=== PATIENT | female | born 1995 | race African-American/Black ===

== ENCOUNTER 2023-12-16 22:50 | Emergency (ER) | payer SELFPAY ==
[~2023-12-16] VITALS: Ht 165.1 cm; Wt 104.3 kg
[2023-12-16 23:01] VITALS: TEMP 98.3
[2023-12-16] MEDS: SODIUM CHLORIDE 0.9% 1000ML 1,000 ML IV STA (23:12)
[2023-12-16] MEDS: ONDANSETRON HCL INJ 2MG/ML 2ML 2 MG/ML VIAL IV STA (23:12)
[2023-12-16] MEDS: FAMOTIDINE 20 MG/2 ML VIAL IV STA (23:12)
[2023-12-16 23:25] LABS: BASOPHILS % 0.1 % (0.0-1.0); EOSINOPHILS # (AUTO) 0.2 (0.0-0.4); EOSINOPHILS % 2.7 % (0.0-6.0); HEMATOCRIT 38.4 % (34.2-44.1); HEMOGLOBIN 13.2 g/dL (12.0-16.0); LYMPHOCYTES % 25.4 % (18.0-39.1); MEAN CORPUSCULAR HEMOGLOBIN 30.8 pg (28-32); MEAN CORPUSCULAR HGB CONC 34.4 g/dL (31-35); MEAN CORPUSCULAR VOLUME 89.5 fL (81-99); MONOCYTES # (AUTO) 0.5 (0.2-0.8); MONOCYTES % 5.8 % (4.4-11.3); NEUTROPHILS # (AUTO) 5.1 (2.1-6.9); NEUTROPHILS % 65.9 % (38.7-80.0); PLATELET COUNT 272 x10e3/uL (140-360); RED BLOOD COUNT 4.29 x10e6/uL (3.6-5.1); RED CELL DISTRIBUTION WIDTH 12.8 % (11.7-14.4); WHITE BLOOD COUNT 7.71 x10e3/uL (4.8-10.8)
[2023-12-16 23:27] LABS: BILIRUBIN,URINE SMALL (NEGATIVE); CLARITY,URINE CLEAR (CLEAR); COLOR,URINE AMBER (YELLOW); GLUCOSE, URINE NEGATIVE (NEGATIVE); KETONES,URINE NEGATIVE (NEGATIVE); LEUKOCYTE ESTERASE ,URINE NEGATIVE (NEGATIVE); NITRITE,URINE NEGATIVE (NEGATIVE); PH,URINE 7 (5 - 7); PROTEIN,URINE DIPSTICK NEGATIVE (NEGATIVE); URINE UROBILINOGEN 2 mg/dL (0.2 - 1)
[2023-12-16 23:28] LABS: PREGNANCY TEST, URINE NEGATIVE (NEGATIVE)
[2023-12-16 23:33] LABS: AMORPHOUS SEDIMENT,URINE FEW (FEW); BACTERIA,URINE FEW /HPF; EPITHELIAL CELLS,URINE FEW /LPF; RBC,URINE 0-5 /HPF (0-5); WBC,URINE (MAN) 0-5 /HPF (0-5)
[2023-12-16 23:44] LABS: ALBUMIN 3.9 g/dL (3.5-5.0); ALBUMIN/GLOBULIN RATIO 1.1 (0.8-2.0); ANION GAP 11.7 mmol/L (8-16); BILIRUBIN,TOTAL 1.5 mg/dL (0.2-1.2); CALCIUM 9.7 mg/dL (8.4-10.2); CREATININE, SERUM 0.93 mg/dL (0.57-1.11); POTASSIUM 3.7 mmol/L (3.5-5.1); TOTAL PROTEIN 7.4 g/dL (6.5-8.1)
[2023-12-16] MEDS ORDERED: IOPAMIDOL 370 MG/ML 100 ML INFUS..BTL INJ ONE (23:58)
[2023-12-17] MEDS: Morphine 4mg INJECTION 4 MG/ML INJ IV STA (00:58)
[2023-12-17 00:59] VITALS: PULSE 76; RESP 15
[2023-12-17] MEDS ORDERED: PANTOPRAZOLE SO40 MG PO (01:32)
[2023-12-17] MEDS ORDERED: ONDANSETRON ODT4 MG PO (01:32)
[2023-12-17] MEDS ORDERED: AMOX TR-K CLV1 EAC2 PO (01:32)
[2023-12-17 01:37] VITALS: BP 117/75; PULSE 72; RESP 15; TEMP 98.2; O2SAT 97
== END 2023-12-17 01:43 | disposition home or self-care (01) ==
LOC: ER 22:56
DX: R10.11 Right upper quadrant pain (principal); K80.50 Calculus of bile duct without cholangitis or cholecystitis without obstruction; K83.8 Other specified diseases of biliary tract; E66.9 Obesity, unspecified
CPT/HCPCS: 36415; 74177; 80053; 81001; 81025; 83690; 85025; 99284; J2270; J2405; J7030; Q9967